=== PATIENT | male | born 1995 | race African-American/Black ===

== ENCOUNTER → 2020-03-30 | Emergency (ER) | payer OTHER ==
[~2020-03-30] VITALS: Ht 177.8 cm; Wt 70.3 kg
[~2020-03-30] MED LIST: IOHEXOL 300 MG/ML 100ML BOTTLE IJ ONE; MORPHINE SULFATE 4 MG/ML SYR/VIAL IV ONE; ONDANSETRON HCL 4 MG/2 ML VIAL IV ONE; POTASSIUM CHL 20 Meq TABLET PO ONE; SODIUM CHLORIDE 0.9% 2,000 ML IV ONE; TETANUS-DIPTH-ACEL PERTUSSIS 0.5ML SYR Tdap IM ONE; cefTRIAXone 1GM/50ML D5W 50 ML IV ONE
[2020-03-30 22:59] LABS: Basophils # (auto) 0 10 ^3/uL (0-0.2); Basophils % (auto) 0.6 % (0.0-2.0); Eosinophils # (auto) 0 10 ^3/uL (0-0.8); Eosinophils % (auto) 0.1 % (0.0-7.0); Hematocrit 47.4 % (41.0-53.0); Hemoglobin 16.1 g/dL (13.5-17.5); Lymphocytes # (auto) 1.3 10 ^3/uL (0.4-5.4); Lymphocytes % (auto) 18.6 % (10.0-50.0); Mean Corpuscular Hemoglobin 29.8 pg (28.0-32.0); Mean Corpuscular Hgb Conc. 33.9 g/dL (32.0-36.0); Mean Corpuscular Volume 88.1 fL (80.0-100.0); Monocytes # (auto) 0.7 10 ^3/uL (0-1.3); Monocytes % (auto) 10.3 % (0.0-12.0); Neutrophils # (auto) 5.1 10 ^3/uL (1.6-8.6); Neutrophils % (auto) 70.4 % (37.0-80.0); Nucleated Red Blood Cells % 0.1 %; Platelet Count (auto) 363 10^3/uL (140-450); Red Blood Cells 5.38 10^6/uL (4.5-5.90); Red Cell Distribution Width 14.2 % (11.8-14.3); White Blood Cell 7.2 10^3/uL (4.4-10.8)
[2020-03-30 23:07] LABS: INR 1.2 (0.9-1.15); Partial Thromboplastin Time 25.5 sec (23.64-32.05)
[2020-03-30 23:23] LABS: Albumin 4.5 g/dL (3.4-5.0); Calcium 9.1 mg/dL (8.5-10.1)
[2020-03-30 23:25] LABS: BUN/Creatinine Ratio 9.3
[2020-03-30 23:27] LABS: Bilirubin, Total 0.3 mg/dL (0.2-1.0); Total Protein 8.6 g/dL (6.4-8.2)
[2020-03-30 23:51] LABS: Potassium 2.8 mmol/L (3.5-5.1)
[2020-03-31 01:10] VITALS: BP 136/87
== END | disposition home or self-care (01) ==
LOC: ER 22:14 → EEVIPCON 22:14
DX: S71.032A Puncture wound without foreign body, left hip, initial encounter (principal); S51.832A Puncture wound without foreign body of left forearm, initial encounter; S71.002A Unspecified open wound, left hip, initial encounter; S70.02XA Contusion of left hip, initial encounter; W34.09XA Accidental discharge from other specified firearms, initial encounter; Y93.89 Activity, other specified; Y92.89 Other specified places as the place of occurrence of the external cause; Y99.8 Other external cause status
CPT/HCPCS: 36415; 71260; 73090; 74177; 80053; 85025; 85610; 85730; 86850; 86900; 86901; 90471; 90715; 96365; 96375; 99285; J0696; J2270; J2405; Q9967; 96372